=== PATIENT | female | born 1995 | race Caucasian/White ===

== ENCOUNTER 2017-01-25 17:22 | Emergency (ER) | payer OTHER ==
[~2017-01-25] VITALS: Ht 165.1 cm; Wt 50.0 kg
[2017-01-25] MEDS ORDERED: MINO50CA36 PO (17:41)
[2017-01-25] MEDS ORDERED: MIRT15 PO (17:41)
[2017-01-25 18:07] LABS: BASOPHILS % (AUTO) 0.3 % (0.0-2.0); HEMATOCRIT 40.2 % (36-46); HEMOGLOBIN 13.6 g/dL (12.0-16.0); LYMPHOCYTES # (AUTO) 2.6 K/uL (1.0-4.8); LYMPHOCYTES % (AUTO) 39.4 % (22.0-44.0); MEAN CORPUSCULAR HEMOGLOBIN 30.6 pg (26.0-34.0); MEAN CORPUSCULAR HGB CONC 33.8 G/dL (31.0-37.0); MEAN CORPUSCULAR VOLUME 90 fL (80-100); MONOCYTES # (AUTO) 0.4 K/uL (0.1-1.0); MONOCYTES % (AUTO) 5.8 % (2.0-9.0); NEUTROPHILS # (AUTO) 3.4 K/uL (1.8-7.7); NEUTROPHILS % (AUTO) 51.5 % (40.0-70.0); PLATELET COUNT (AUTO) 299 K/uL (150-450); RED BLOOD CELL COUNT(AUTO) 4.45 MIL/uL (4.00-5.20); WHITE BLOOD COUNT (AUTO) 6.6 K/uL (4.5-11.0)
[2017-01-25 18:21] LABS: ANION GAP 7 mmol/L (8-16); CARBON DIOXIDE 29 mmol/L (22-29); CHLORIDE 105 mmol/L (98-107); CREATININE 0.86 mg/dL (0.60-1.30); GLOMERULAR FILTR. RATE CALC > 60 mL/min (>60); POTASSIUM 3.9 mmol/L (3.5-5.1); SODIUM SERUM 141 mmol/L (136-145); UREA NITROGEN, BLOOD 12 mg/dL (7-18)
[2017-01-25 18:27] LABS: ALANINE AMINOTRANSFERASE 22 U/L (12-78); ALBUMIN 3.8 g/dL (3.4-5.0); ASPARTATE AMINOTRANSFERASE 14 U/L (15-37); BILIRUBIN,TOTAL 0.5 mg/dL (0.1-1.0); TOTAL PROTEIN, SERUM 7.4 g/dL (6.4-8.2)
[2017-01-25 18:39] LABS: ACETAMINOPHEN < 2 mcg/mL (10-30)
[2017-01-25 18:40] LABS: SALICYLATE 1.1 mg/dL (2.8-20.0)
[2017-01-25 23:05] VITALS: BP 116/62
== END 2017-01-25 23:42 | disposition short-term general hospital (02) ==
LOC: EMS 17:28
DX: T43.022A Poisoning by tetracyclic antidepressants, intentional self-harm, initial encounter (principal); F19.10 Other psychoactive substance abuse, uncomplicated; F12.90 Cannabis use, unspecified, uncomplicated; F17.210 Nicotine dependence, cigarettes, uncomplicated; Y92.89 Other specified places as the place of occurrence of the external cause
CPT/HCPCS: 36415; 80053; 80307; 84703; 85025; 99285; G0480 ×2; G0481

== ENCOUNTER 2024-07-23 14:12 | Inpatient (IN) | payer MEDICAID, OTHER ==
[~2024-07-23] VITALS: Ht 165.1 cm; Wt 61.3 kg
[~2024-07-23 14:12] MED LIST: MINO50CA36 PO; MIRT-89 PO
[2024-07-23 14:44] LABS: APPEARANCE,URINE CLEAR (CLEAR); BILIRUBIN,URINE NEGATIVE (NEGATIVE); COLOR,URINE COLORLESS (YELLOW); GLUCOSE, URINE (UA) NEGATIVE (NEGATIVE); KETONES,URINE NEGATIVE (NEGATIVE); LEUKOCYTE ESTERASE ,URINE NEGATIVE (NEGATIVE); NITRATE,URINE NEGATIVE (NEGATIVE); OCCULT BLOOD,URINE NEGATIVE (NEGATIVE); PROTEIN,URINE NEGATIVE (NEGATIVE); SPECIFIC GRAVITIY, URINE 1.003 (1.003-1.030); UROBILINOGEN,URINE <=1.0 mg/dL (<=1.0)
[2024-07-23 14:48] LABS: ALCOHOL, URINE DRUG SCREEN POSITIVE (NEGATIVE); AMPHET/METH SCREEN,URINE NEGATIVE (NEGATIVE); BARBITURATE SCREEN, URINE NEGATIVE (NEGATIVE); BENZODIAZEPINES SCREEN,URINE NEGATIVE (NEGATIVE); CANNABINOID SCREEN,URINE NEGATIVE (NEGATIVE); COCAINE SCREEN,URINE NEGATIVE (NEGATIVE); METHADONE SCREEN, URINE NEGATIVE (NEGATIVE); OPIATE SCREEN,URINE NEGATIVE (NEGATIVE); PHENCYCLIDINE SCREEN,URINE NEGATIVE (NEGATIVE)
[2024-07-23] MEDS: ACETAMINOPHEN 500 MG TABLET PO ONE (14:57)
[2024-07-23] MEDS: LIDOCAINE 1% 10 ML VIAL SQ ONE (14:57)
[2024-07-23] MEDS: BACITRACIN 0.9 GM PACKET OINTMENT TP ONE (14:57)
[2024-07-23 15:03] LABS: BASOPHILS % (AUTO) 0.8 % (0.0-2.0); EOSINOPHILS % (AUTO) 0.3 % (1.0-6.0); HEMATOCRIT 39.4 % (36-46); HEMOGLOBIN 13.2 g/dL (12.0-16.0); LYMPHOCYTES # (AUTO) 1.8 K/uL (1.0-4.8); LYMPHOCYTES % (AUTO) 27.3 % (22.0-44.0); MEAN CORPUSCULAR HEMOGLOBIN 29.6 pg (26.0-34.0); MEAN CORPUSCULAR HGB CONC 33.5 G/dL (31.0-37.0); MEAN CORPUSCULAR VOLUME 89 fL (80-100); MONOCYTES # (AUTO) 0.4 K/uL (0.1-1.0); MONOCYTES % (AUTO) 6.5 % (2.0-9.0); NEUTROPHILS # (AUTO) 4.3 K/uL (1.8-7.7); NEUTROPHILS % (AUTO) 65.1 % (40.0-70.0); PLATELET COUNT (AUTO) 351 K/uL (150-450); RED BLOOD CELL COUNT(AUTO) 4.46 MIL/uL (4.00-5.20); RED CELL DISTRIBUTION WIDTH 13.6 % (11.5-14.5); WHITE BLOOD COUNT (AUTO) 6.6 K/uL (4.5-11.0)
[2024-07-23 15:14] LABS: ANION GAP 12 mmol/L (8-16); CALCIUM, TOTAL 9.4 mg/dL (8.8-10.5); CARBON DIOXIDE 30 mmol/L (22-29); CHLORIDE 105 mmol/L (98-107); CREATININE 0.79 mg/dL (0.60-1.30); GLOMERULAR FILTR. RATE CALC > 60 mL/min (>60); GLUCOSE,RANDOM 82 mg/dL (70-110); POTASSIUM 4.2 mmol/L (3.5-5.1); SODIUM SERUM 147 mmol/L (136-145); UREA NITROGEN, BLOOD 12 mg/dL (7-18)
[2024-07-23] MEDS: HydrOXYzine PAMOATE 50 MG CAPSULE PO ONE (16:38)
[2024-07-23] MEDS: LORazepam 2 MG TABLET PO ONE (16:38)
[2024-07-23 16:50] LABS: COVID AG,FIA SOURCE NASAL SWAB
[2024-07-23] MEDS: HALOPERIDOL 2 MG PO ONE (17:03)
[2024-07-23 17:07] LABS: SARS-COV2 (COVID) ANTIGEN,FIA Negative (Negative)
[2024-07-24 00:14] VITALS: BP 124/83; PULSE 85; RESP 18; TEMP 97.3; O2SAT 100
[2024-07-24 02:28] VITALS: BP 124/83; PULSE 85; RESP 18; TEMP 97.3; O2SAT 100
[2024-07-24 08:18] VITALS: BP 93/65; PULSE 96; RESP 17; TEMP 96.9; O2SAT 97
[2024-07-24] MEDS: LORazepam 2 MG TABLET PO PRN (08:47)
[2024-07-24] MEDS: haloperidoL 5 MG TABLET PO PRN (08:51)
[2024-07-24] MEDS ORDERED: OMEPRAZOLE 20 MG CAPSULE PO PRN (10:15)
[2024-07-24] MEDS ORDERED: ONDANSETRON 4 MG TABLET PO PRN (10:15)
[2024-07-24] MEDS ORDERED: CloNIDine HCL 0.1 MG TABLET PO PRN (10:15)
[2024-07-24] MEDS ORDERED: IBUPROFEN 600 MG TABLET PO PRN (10:15)
[2024-07-24] MEDS ORDERED: BENZOCAINE/MENTHOL [CEPACOL] LOZENGE PO PRN (10:15)
[2024-07-24] MEDS ORDERED: MAG HYDROX/ALUMINUM HYD/SIMETH ES 30 ML SUSPENSION UDCUP PO PRN (10:15)
[2024-07-24] MEDS ORDERED: ACETAMINOPHEN 325 MG TABLET PO PRN (10:15)
[2024-07-24] MEDS ORDERED: MAGNESIUM HYDROXIDE SUSPENSION 30 ML UDCUP PO PRN (10:15)
[2024-07-24] MEDS ORDERED: DOCUSATE SODIUM 100 MG CAPSULE PO PRN (10:15)
[2024-07-24] MEDS ORDERED: ALBUTEROL SULFATE HFA 90 MCG/PUFF 8 GM INHALER IH PRN (10:15)
[2024-07-24] MEDS ORDERED: LOPERAMIDE HCL 2 MG CAPSULE PO PRN (10:15)
[2024-07-24] MEDS ORDERED: BACITRACIN 28 GM OINTMENT TP PRN (10:15)
[2024-07-24] MEDS ORDERED: PETROLATUM,WHITE 28 GM JELLY TP PRN (10:15)
[2024-07-24] MEDS: BusPIRone HCL 15 MG TABLET PO SCH (17:14)
[2024-07-24] MEDS: OLANZapine 10 MG TABLET PO SCH (20:26)
[2024-07-24] MEDS: ZOLPIDEM TARTRATE 10 MG TABLET PO PRN (20:26)
[2024-07-24 20:39] VITALS: BP 105/64; RESP 20; O2SAT 100
[2024-07-25 08:05] VITALS: BP 103/65; PULSE 71; RESP 15; TEMP 97.6; O2SAT 100
[2024-07-25 08:22] LABS: CHOL/HDL RATIO 2.2 (3.9-5.7)
[2024-07-25 08:39] LABS: HEMOGLOBIN A1C 5.2 % (3.8-5.6)
[2024-07-25 21:05] VITALS: BP 110/64; PULSE 67; RESP 16; TEMP 97.9; O2SAT 99
[2024-07-26 08:16] VITALS: BP 103/70; PULSE 80; RESP 16; TEMP 97.7; O2SAT 99
[2024-07-26 20:35] VITALS: BP 107/69; PULSE 69; RESP 16; TEMP 98.1; O2SAT 98
[2024-07-27 08:11] VITALS: BP 103/60; PULSE 78; RESP 18; TEMP 97.5; O2SAT 100
[2024-07-27] MEDS ORDERED: BUSP15 PO (12:18)
[2024-07-27] MEDS ORDERED: OLAN10TA74 PO (12:18)
== END 2024-07-27 14:00 | disposition home or self-care (01) | DRG 750 ==
LOC: EMS 14:13 → B3A 21:25
PROVIDERS: ADMIT Psychiatry & Neurology Psychiatry; ATTEND Psychiatry & Neurology Psychiatry
PROC: 0HQEXZZ Repair Left Lower Arm Skin, External Approach (ICD-10-PCS; principal; 2024-07-23)
DX: F25.1 Schizoaffective disorder, depressive type (principal); R45.851 Suicidal ideations; F31.9 Bipolar disorder, unspecified; F25.0 Schizoaffective disorder, bipolar type; F41.9 Anxiety disorder, unspecified; F10.129 Alcohol abuse with intoxication, unspecified; K21.9 Gastro-esophageal reflux disease without esophagitis; Z20.822 Contact with and (suspected) exposure to COVID-19; K59.00 Constipation, unspecified; G47.00 Insomnia, unspecified; F12.90 Cannabis use, unspecified, uncomplicated; F17.210 Nicotine dependence, cigarettes, uncomplicated; X78.9XXA Intentional self-harm by unspecified sharp object, initial encounter; S61.512A Laceration without foreign body of left wrist, initial encounter; Y93.89 Activity, other specified; Y92.89 Other specified places as the place of occurrence of the external cause; Y99.8 Other external cause status; Z79.899 Other long term (current) drug therapy
CPT/HCPCS: 12002; 80048; 80061; 80307; 81003; 83036; 84703; 85025; 99285; G0480; J3490